=== PATIENT | male | born 1940 | race Hispanic/Latino ===

== ENCOUNTER 2017-05-18 13:22 | Inpatient (IN) | payer MEDICARE ==
[2017-05-18] MEDS ORDERED: ATROPINE SULFATE 0.1 MG/ML 10 ML SYG IVP ONE (13:33)
[2017-05-18 13:43] LABS: BASOPHILS % (AUTO) 1.3 % (0.0-5.0); EOSINOPHILS % (AUTO) 1.9 % (0.0-8.0); HEMATOCRIT 38.7 % (42-54); LYMPHOCYTES % (AUTO) 30.1 % (21.0-51.0); MEAN CORPUSCULAR HEMOGLOBIN 32.8 pg (27.0-33.0); MEAN CORPUSCULAR HGB CONC 33.6 g/dL (32.0-36.0); MEAN CORPUSCULAR VOLUME 97.7 fL (79-99); MONOCYTES % (AUTO) 7.9 % (3.0-13.0); NEUTROPHILS % (AUTO) 58.8 % (40.0-77.0); PLATELET COUNT (AUTO) 163 K/uL (130-400); RED BLOOD CELL COUNT(AUTO) 3.96 MIL/uL (4.50-6.20); RED CELL DISTRIBUTION WIDTH 14.4 % (11.0-15.5); WHITE BLOOD COUNT (AUTO) 6.3 K/uL (4.8-10.8)
[2017-05-18 13:52] LABS: CREATININE 1.6 mg/dL (0.5-1.5); POTASSIUM 3.8 mmol/L (3.5-5.1)
[2017-05-18 13:53] LABS: INR 1.25 (0.85-1.15); PROTHROMBIN TIME 13.1 SEC (9.6-11.6)
[2017-05-18 14:06] LABS: ALBUMIN 3.2 g/dL (3.5-5.0); BILIRUBIN,TOTAL 0.4 mg/dL (0.2-1.0); CREATINE KINASE MB 1.3 ng/mL (0.5-3.6)
[2017-05-18] MEDS ORDERED: ACETAMINOPHEN 325 MG TAB PO PRN ×2 (15:00)
[2017-05-18] MEDS ORDERED: GUAIFENESIN-DM 200/20 MG 10 ML PO PRN (15:00)
[2017-05-18] MEDS ORDERED: MAG HYDROX/AL HYDROX/SIMETH ES 30 ML SUSP UDCUP PO PRN (15:00)
[2017-05-18] MEDS ORDERED: ONDANSETRON HCL 4 MG/2 ML VIAL IV PRN (15:00)
[2017-05-18] MEDS ORDERED: LACTULOSE 20 GM/30 ML UDCUP PO PRN (15:00)
[2017-05-18 16:00] VITALS: BP 104/58
[2017-05-18] MEDS ORDERED: DUTA0.5C15 PO (17:24)
[2017-05-18] MEDS ORDERED: RIVA20TA PO (17:24)
[2017-05-18] MEDS ORDERED: ENTA200T5 PO (17:24)
[2017-05-18] MEDS ORDERED: TAMS0.4C32 PO (17:24)
[2017-05-18] MEDS ORDERED: CARB-37 PO (17:24)
[2017-05-18 19:59] VITALS: BP 117/48
[2017-05-18] MEDS ORDERED: MAGNESIUM SULFATE 1 GM in SODIUM CHLORIDE 0.9% 50 ML IV SCH (20:00)
[2017-05-18] MEDS: ENTACAPONE 200 MG PO SCH (21:00)
[2017-05-18] MEDS: LEVODOPA PO SCH (22:13)
[2017-05-18] MEDS: CARBIDOPA PO SCH (22:13)
[2017-05-18] MEDS: [UNRECOGNIZED DRUG - OTHER] PO SCH (22:13)
[2017-05-18 23:43] VITALS: BP 130/58
[2017-05-19 04:07] VITALS: BP 130/71
[2017-05-19 05:36] LABS: CREATININE 1.4 mg/dL (0.5-1.5); POTASSIUM 3.8 mmol/L (3.5-5.1)
[2017-05-19 07:49] VITALS: BP 116/54
[2017-05-19] MEDS: CARBIDOPA PO SCH ×2 (09:00→14:02)
[2017-05-19] MEDS: [UNRECOGNIZED DRUG - OTHER] PO SCH ×2 (09:00→14:02)
[2017-05-19] MEDS: LEVODOPA PO SCH ×2 (09:00→14:02)
[2017-05-19 12:10] VITALS: BP 118/56
[2017-05-19] MEDS: ENTACAPONE 200 MG PO SCH (14:02)
[2017-05-19 16:00] VITALS: BP 116/67
[2017-05-19 19:35] VITALS: BP 117/58
[2017-05-19 23:42] VITALS: BP 125/49
[2017-05-20 03:50] VITALS: BP 135/55
[2017-05-20 08:00] VITALS: BP 105/44
[2017-05-20] MEDS: [UNRECOGNIZED DRUG - OTHER] PO SCH ×3 (09:00→20:11)
[2017-05-20] MEDS: CARBIDOPA PO SCH ×3 (09:00→20:11)
[2017-05-20] MEDS: ENTACAPONE 200 MG PO SCH ×2 (09:00→20:11)
[2017-05-20] MEDS: LEVODOPA PO SCH ×3 (09:00→20:11)
[2017-05-20 11:39] VITALS: BP 135/58
[2017-05-20] MEDS: VANCOMYCIN 1GM+NS 250ML 250 ML IV SCH (13:30)
[2017-05-20 13:43] LABS: INR 1.09 (0.85-1.15); PARTIAL THROMBOPLASTIN TIME 27.7 SEC (26.3-35.5); PROTHROMBIN TIME 11.4 SEC (9.6-11.6)
[2017-05-20 16:34] VITALS: BP 120/74
[2017-05-20 19:49] VITALS: BP 127/52
[2017-05-20 23:55] VITALS: BP 130/62
[2017-05-21] VITALS (11 sets, daily range): BP systolic 106–180; BP diastolic 45–80
[2017-05-21] MEDS: LEVODOPA PO SCH ×3 (09:31→21:02)
[2017-05-21] MEDS: CARBIDOPA PO SCH ×3 (09:31→21:02)
[2017-05-21] MEDS: [UNRECOGNIZED DRUG - OTHER] PO SCH ×3 (09:31→21:02)
[2017-05-21] MEDS: ENTACAPONE 200 MG PO SCH ×2 (09:32→21:02)
[2017-05-21] MEDS ORDERED: VANCOMYCIN 1GM+NS 250ML 500 ML IV ONE (09:46)
[2017-05-21] MEDS ORDERED: LIDOCAINE HCL 1% MDV 50ML VIAL ONE (09:46)
[2017-05-21] MEDS ORDERED: BUPIVACAINE/PF 0.25% 30ML VIAL IJ ONE (09:46)
[2017-05-21] MEDS: VANCOMYCIN 1GM+NS 250ML 250 ML IV SCH (11:48)
[2017-05-21] MEDS: CLINDAMYCIN 600 MG/D5% WATER 50 ML IV SCH (18:29)
[2017-05-22 00:01] VITALS: BP 134/72
[2017-05-22] MEDS: CLINDAMYCIN 600 MG/D5% WATER 50 ML IV SCH (01:10)
[2017-05-22 04:03] VITALS: BP 151/80
[2017-05-22 04:54] LABS: CREATININE 1.3 mg/dL (0.5-1.5); POTASSIUM 3.9 mmol/L (3.5-5.1)
[2017-05-22 07:00] VITALS: BP 142/69
[2017-05-22] MEDS: LEVODOPA PO SCH ×2 (08:34→14:00)
[2017-05-22] MEDS: CARBIDOPA PO SCH ×2 (08:34→14:00)
[2017-05-22] MEDS: [UNRECOGNIZED DRUG - OTHER] PO SCH ×2 (08:34→14:00)
[2017-05-22] MEDS: ENTACAPONE 200 MG PO SCH (08:35)
[2017-05-22 11:00] VITALS: BP 137/65
[2017-05-22] MEDS: VANCOMYCIN 1GM+NS 250ML 250 ML IV SCH (15:14)
== END 2017-05-22 16:30 | disposition home or self-care (01) | DRG 243 ==
LOC: EDH 13:22 → OBSVTOIN 14:51 → INTOOBSV 14:51 → EDHIP 14:51 → 2AH 16:30
PROVIDERS: ADMIT Family Medicine; ATTEND Family Medicine
PROC: 0JH604Z Insertion of Pacemaker, Single Chamber into Chest Subcutaneous Tissue and Fascia, Open Approach (ICD-10-PCS; principal; 2017-05-21)
PROC: 02HK3JZ Insertion of Pacemaker Lead into Right Ventricle, Percutaneous Approach (ICD-10-PCS; 2017-05-21)
DX: R00.1 Bradycardia, unspecified (principal); D68.69 Other thrombophilia; I45.10 Unspecified right bundle-branch block; G20 Parkinson's disease; N18.3 Chronic kidney disease, stage 3 (moderate); J44.9 Chronic obstructive pulmonary disease, unspecified; I48.2 Chronic atrial fibrillation; I12.9 Hypertensive chronic kidney disease with stage 1 through stage 4 chronic kidney disease, or unspecified chronic kidney disease; F41.9 Anxiety disorder, unspecified; N40.0 Benign prostatic hyperplasia without lower urinary tract symptoms; Z79.01 Long term (current) use of anticoagulants; Z85.46 Personal history of malignant neoplasm of prostate; Z86.718 Personal history of other venous thrombosis and embolism; Z86.73 Personal history of transient ischemic attack (TIA), and cerebral infarction without residual deficits; Z90.5 Acquired absence of kidney; Z95.0 Presence of cardiac pacemaker
CPT/HCPCS: 33207; 36415; 71045; 71046; 80048; 80053; 82550; 82553; 83735; 84484; 85025; 85610; 85730; 93005; 93306; 93970; C1898; G0378; J0461; J3370; J3475; J3490